=== PATIENT | male | born 1995 | race Two or more races ===

== ENCOUNTER 2022-09-05 19:36 | Emergency (ER) | payer OTHER ==
[~2022-09-05] VITALS: Ht 175.3 cm; Wt 99.8 kg
[2022-09-05] MEDS ORDERED: SULF1TAB48 PO (20:44)
[2022-09-05] MEDS ORDERED: CEPH500T PO (20:44)
[2022-09-05] MEDS ORDERED: CEFTRIAXONE 1 G VIAL IM ONE (20:45)
[2022-09-05] MEDS ORDERED: SULFAMETH/TRIMETH 800/160 MG TABLET PO ONE (20:45)
[2022-09-05] MEDS ORDERED: CEFTRIAXONE 1 G VIAL ONE (21:20)
[2022-09-05] MEDS ORDERED: SULFAMETH/TRIMETH 800/160 MG TABLET ONE (21:21)
[2022-09-05] MEDS ORDERED: LIDOCAINE HCL 2% 20 ML VIAL ONE (21:23)
[2022-09-05] MEDS ORDERED: LIDOCAINE HCL 1% 20 ML VIAL ONE (21:24)
--- NOTE | 2022-09-05 21:30 | NUR ---
Pt. discharged with stable. Understands to return tomorrow. Discharge instructions given by MD on phone as pt. left w/o paper discharge instructions.
[2022-09-05 21:46] VITALS: BP 127/70
--- NOTE | 2022-09-05 21:55 | NUR ---
Pt. informed by Dr. Cortez to return tomorrow for evaluation. Told pt. ok to be discharged post rocephin injection without reassessment today if he felt comfortable.
== END 2022-09-05 21:30 | disposition home or self-care (01) ==
LOC: ER 20:32
DX: L02.411 Cutaneous abscess of right axilla (principal); F17.210 Nicotine dependence, cigarettes, uncomplicated
CPT/HCPCS: 99283; 96372; J0696; J3490; A4663